=== PATIENT | female | born 1990 | race Caucasian/White ===

== ENCOUNTER → 2018-08-30 16:47 | Outpatient (CLI) | payer OTHER, SELFPAY ==
[2018-08-30 16:08] VITALS: BMI 24.3
[2018-08-30 18:42] LABS: Glucose Challenge Gest 1H 50g 96 mg/dL (70-140)
[2018-08-30 22:09] LABS: Chlamydia Trachomatis by PCR Negative (Negative); Neisserai gonorrhoeae by PCR Negative (Negative); Probe Check PASS; Sample Adequacy Control PASS; Specimen Processing Control PASS
--- OUTSIDE RECORDS SUMMARY | 2018-10-17 01:53 | XMS RPT_ITS ---
:1990 Author Organization OHIP Care Team Providers Name Role Phone Kyung Catalan Attending Unavailable Marcanthony, Kyung Referring Unavailable Adler, Juan Primary Care Unavailable Kyung Catalan Attending Unavailable Adler, Juan Attending Unavailable Adler, Juan Attending Unavailable Marcanthony, Kyung Attending Unavailable DOCTOR, OUT OF TOWN Referring Unavailable Adler, Juan Attending Unavailable [place], Jennifer Attending Unavailable Adler, Juan Referring Unavailable [place], Jennifer Attending Unavailable [place], Jennifer Referring Unavailable Adler, Juan Primary Care Unavailable PROBLEMS PROBLEMS DATE TYPE CONDITION / CODE ATTENDING STATUS SOURCE 09/30/2018 Unknown Z34.93 - Encounter Jennifer Partida Active [place] for supervision of [facility] normal , Hospital unspecified, third Repository trimester / Z34.93(ICD-10) 09/30/2018 Unknown Z23 - Encounter Jennifer Partida Active [place] for immunization / Community Z23(ICD-10) Hospital Repository 09/16/2018 Unknown Z3A.28 - 28 weeks Mckayanthdavonte, Active [place] gestation of [facility] / Hospital Z3A.28(ICD-10) Repository 09/16/2018 Unknown Z34.83 - Encounter Marcanthdavonte, Active [place] for supervision of [facility] other normal Hospital , third Repository trimester / Z34.83(ICD-10) 08/30/2018 Unknown Z34.90 - Encounter Marcanthony, Active [place] for supervision of [facility] normal , Hospital unspecified, Repository unspecified trimester / Z34.90(ICD-10) PROCEDURES PROCEDURES No Procedure Records FoundRESULTS RESULTS Observed: 09/30/2018 Status: F Source: [place] CULTURE, URINE 1:24 PM [facility] Urine Culture ORGANISM 1: Mixed Gram Positive Organisms [place] Count 1000-10,000 MIX CULTURE Mixed contaminants. Submit a new specimen if indicated. Performed By: #### M100.0650 #### [facility] [address] [place], [address] LOAN ADVISER OFFICE VISIT Observed: 09/30/2018 Status: F Source: RILEY REPORT 10:21 AM [facility] REPOSITORY [facility] 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 Is patient in pain?: No Allergies No Known Allergies Allergy (Verified 09/30/18 10:01) Medications pediatric multivitamin no.140-iron fumarate 18 mg iron chewable tablet mg PO tab 08/30/18 [History Confirmed 09/30/18] Last Menstral Period: 02/20/18 Zika: Zika virus screening: Negative : No PFSH PFSH Surgical History Gallbladder AND bile duct stone with obstruction (Acute) Family History Grandfather Cancer Grandmother Cancer Hypertension Father Hypertension Social History number of children: 1 current occupational status: unemployed Smoking Status: Never smoker alcohol intake: never substance use type: does not use seatbelt use: always do you feel safe at home: Yes additional social history: Daiana Zaman Pregancy History 4 Elective abortions Hx Para 1 Spontaneous abortions 2 Past Pregnancies Del. DateName GA/Weeks Outcome Route Bth WeighInfant GeLabor LgtAnesthesiDel LocatProvider FOB t n h a n HPI 32 WK OB: Details: MAYUR FERNANDES is a 28 year old who presents for routine OB visit. OB Visit DIANNA Calculator Estimated Delivery Date 11/20/18 Based on LMP (certain) 02/13/18 Current WG 32w 5d Number 1 Expected Delivery Route/Plan Specific Issue/Plans flu vaccine: given tdap vaccine: rhogam: LARC form signed: [] labor support person: [] pain management: [] cut cord/dad catch: [] : [] PP control planned: [] discussed possible routes of delivery and associated risks: [] special requests: [] Initial Weight: Not Recorded Date Weight BP Urine PrFHR FuHt Pres MoCTX DilationFetal StVisit NoProviderComments E ot v te GA G Effac lucose ed Visit Notes Visit Date: 09/30/18 No VB, LOF. No reg CTX. Doing well ROBERT Martinez on 09/30/18 Visit Date: 09/16/18 no vb lof good fm no regular ctx Kyung Catalan MD on 09/16/18 Diagnostics Diagnostics Labs Pap Smear Negative 05/12/18 Chlam trachomat DNA PCR Negative (Negative) 08/30/18 N.gonorrhoeae DNA (PCR) Negative (Negative) 08/30/18 Glucose 1 Hr 50 gm 96 mg/dL (70-140) 08/30/18 Details: HIV: Urine Culture: Sequential Screen: NIPT Screen: Immunizations Boostrix Tdap Performing Provider: ROBERT Martinez Administered by: Sophy Eaton on 09/30/18 10:12 Dose Route Admin Location Lot Number Expiration Date [facility] Head Of Stock 0.5 mL IM Left Deltoid [id number] 09/04/20 87716-117-85 [employer] VIS Given Date VIS Publication Date 09/30/18 11/14/14 Eligibility Eligibility Date Assessment AND Plan Problems 1. Encounter for supervision of other normal in third trimester Z34.83 DIANNA ? 11/20/18 boy PC Johnny - daiana (estranged) 2. 32 weeks gestation of Z3A.32 obtain records from [place] 3. Marital conflict involving estrangement Z63.5 Spouse/FOB not living in [place] Plan Orders placed: tdap, urine culture Reviewed of labor precautions, movement/kick counts ACOG trimester education reviewed and updated See problem list details for updated plan of care Gestational age appropriate handout given RTO: 2 weeks Orders Orders: Medications Discontinued: Boostrix Tdap (diphth,pertus(acell),tetanus) Discontinued 0.5 mL IM ONCE #1 0RF NS Z23 Reason: Office Medication has been Documented as given Coding Level of Care Code OB Routine Diagnoses Encounter for supervision of other normal in third trimester Z34.83 Normal : other normal 32 weeks gestation of Z3A.32 Weeks of gestation: 32 weeks Marital conflict involving estrangement Z63.5 09/30/18 1021 <Electronically signed by Jennifer JONES> Date Jennifer JONES Cosigner Signature: Date (if applicable) CC: LOAN ADVISER OFFICE VISIT Observed: 09/16/2018 Status: F Source: RONA REPORT 4:43 PM [facility] REPOSITORY [facility] [address] [place] [address]. 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 Is patient in pain?: No Allergies No Known Allergies Allergy (Verified 09/16/18 16:10) Medications pediatric multivitamin no.140-iron fumarate 18 mg iron chewable tablet mg PO tab 08/30/18 [History Confirmed 09/16/18] Last Menstral Period: 02/20/18 Zika: Zika virus screening: Negative : No PFSH PFSH Surgical History Gallbladder AND bile duct stone with obstruction (Acute) Family History Grandfather Cancer Grandmother Cancer Hypertension Father Hypertension Social History number of children: 1 current occupational status: unemployed Smoking Status: Never smoker alcohol intake: never substance use type: does not use seatbelt use: always do you feel safe at home: Yes additional social history: Daiana Zaman Pregancy History 4 Elective abortions Hx Para 1 Spontaneous abortions 2 Past Pregnancies Del. DateName GA/Weeks Outcome Route Bth WeighInfant GeLabor LgtAnesthesiDel LocatProvider FOB t n h a n HPI 30 WEEK OB: Details: MAYUR FERNANDES is a 28 year old who presents for routine OB visit. OB Visit DIANNA Calculator Estimated Delivery Date 11/20/18 Based on LMP (certain) 02/13/18 Current WG 30w 5d Number 1 Expected Delivery Route/Plan Specific Issue/Plans flu vaccine: given tdap vaccine: rhogam: LARC form signed: [] labor support person: [] pain management: [] cut cord/dad catch: [] : [] PP control planned: [] discussed possible routes of delivery and associated risks: [] special requests: [] Initial Weight: Not Recorded Date Weight BP Urine PrFHR FuHt Pres MoCTX DilationFetal StVisit NoProviderComments E ot v te GA G Effac lucose ed Visit Notes Visit Date: 09/16/18 no vb lof good fm no regular ctx Kyung Catalan MD on 09/16/18 Diagnostics Diagnostics Labs Chlam trachomat DNA PCR Negative (Negative) 08/30/18 N.gonorrhoeae DNA (PCR) Negative (Negative) 08/30/18 Glucose 1 Hr 50 gm 96 mg/dL (70-140) 08/30/18 Details: HIV: Urine Culture: Sequential Screen: NIPT Screen: Results [id number] Office Urine Glucose Negative Last Edit by Daniela Rico on 09/16/18 16:18 Office Urine Protein Negative Last Edit by Daniela Rico on 09/16/18 16:18 Assessment AND Plan Problems 1. 28 weeks gestation of Z3A.28 obtain records from [place] 2. Encounter for supervision of other normal in third trimester Z34.83 DIANNA ? 11/20/18 boy PC Jhonny - daiana (estranged) Plan movement and labor precautions reviewed. ACOG trimester education reviewed and updated. see problem list details for updated plan management information and see below for orders placed at this visit. GA appropriate handout given. Orders Orders: Coding Level of Care Code OB Routine Diagnoses 28 weeks gestation of Z3A.28 Weeks of gestation: 28 weeks Encounter for supervision of other normal in third trimester Z34.83 Normal : other normal 09/16/18 1643 <Electronically signed by Kyung Catalan MD> Date Kyung Catalan MD Cosigner Signature: Date (if applicable) CC: CT/NG WCH BY PCR Collected: 08/30/2018 Status: F Source: RONA 6:58 PM [facility] REPOSITORY TYPE CODE TESTS RESULT OUT OF RANGE REFERENCE UNITS LAB L8200.2100 Negative Normal Chlam Negative Trac PCR LAB L8200.2200 Negative Normal NG by Negative PCR Performed By: #### L8200.2000 #### [facility] [address] [place] [place], [address] GLUCOSE CHALLENGE GEST Collected: 08/30/2018 Status: F Source: RONA 1H 50G 5:00 PM [facility] REPOSITORY TYPE CODE TESTS RESULT OUT OF RANGE REFERENCE UNITS LAB L501.0250 70-140 mg/dL Normal GLU GEST 96 50g 1H Performed By: #### L501.0250 #### [facility] [address] [place], [address] LOAN ADVISER OFFICE VISIT Observed: 08/30/2018 Status: F Source: RONA REPORT 4:50 PM [facility] REPOSITORY [facility] 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 Is patient in pain?: No Allergies No Known Allergies Allergy (Unverified 08/30/18 16:09) Medications pediatric multivitamin no.140-iron fumarate 18 mg iron chewable tablet mg PO tab 08/30/18 [History Confirmed 08/30/18] Last Menstral Period: 02/20/18 Zika: Zika virus screening: Negative : No PFSH PFSH Surgical History Gallbladder AND bile duct stone with obstruction (Acute) Family History Grandfather Cancer Grandmother Cancer Hypertension Father Hypertension Social History number of children: 1 current occupational status: unemployed Smoking Status: Never smoker alcohol intake: never substance use type: does not use seatbelt use: always do you feel safe at home: Yes additional social history: Daiana Zaman Pregancy History 4 Elective abortions Hx Para 1 Spontaneous abortions 2 Past Pregnancies Del. DateName GA/Weeks Outcome Route Bth WeighInfant GeLabor LgtAnesthesiDel LocatProvider FOB t n h a n HPI OB Transfer-27 weeks-STD check: Details: MAYUR FERNANDES is a 28 year old who presents for New OB visit. OB Visit Menstrual History Last Menstral Period: 02/20/18 Assessment AND Plan Problems 1. Encounter for supervision of other normal in third trimester Z34.83 DIANNA ? 3/2/19 boy SHRAVAN Turner - daiana (estranged) 2. 28 weeks gestation of Z3A.28 obtain records from [facility] trimester education reviewed and updated. see problem list details for updated plan management information and see below for orders placed at this visit. GA appropriate handout given. Orders Orders: Results [id number] Office Urine Glucose Negative Last Edit by Daniela Rico on 08/30/18 16:08 Office Urine Protein Negative Last Edit by Daniela Rico on 08/30/18 16:08 Coding Level of Care Code OB Routine Diagnoses Encounter for supervision of other normal in third trimester Z34.83 Normal : other normal 28 weeks gestation of Z3A.28 Weeks of gestation: 28 weeks 08/30/18 1650 <Electronically signed by Kyung Catalan MD> Date Kyung Catalan MD Cosigner Signature: Date (if applicable) CC: ALLERGIES ALLERGIES DATE TYPE / CODE NAME / CODE REACTION SEVERITY SOURCE 09/30/2018 Drug No Known Unknown [place] [facility] Allergy/4160 Allergies/F00 Hospital [address]306(SNOMED 4190244(RXNOR Repository CT) M) ENCOUNTERS ENCOUNTERS ADMIT/DISCHARGE ACCOUNT ADMITTING ENCOUNTER LOCATION SOURCE NUMBER CLASS 09/30/2018 [id number] Ambulatory [place] [facility] ing:LABSPEC Repository 09/30/2018/ [id number] Ambulatory [facility] 09/16/2018/ [id number] Ambulatory B[facility] Rep[facility] 08/30/2018 [id number] Ambulatory [place] [facility] ing:LAB Repository 08/30/2018/ [id number] Ambulatory BMS[facility]:B [facility] Rep[facility] 06/19/2018 [id number] Amb[facility] Rep[facility] 06/10/2018 [id number] Ambulatory [facility] Rep[facility] 05/12/2018 [id number] Ambulatory [facility]:B [place] [facility] Repository PAYERS PAYERS ENCOUNTER GUARANTOR PAYER SUBSCRIBER SOURCE 09/30/2018 MAYUR D Primary ROXANNA FERNANDES1192 TR Insurance:TRICAREPoli BURNSDOB: [address] cy Number: [id number] Hospital [address]Mfj: [phone] [id number] Repository [phone] () Date:[id number] [address]UI: . 09/30/2018 Secondary MAYUR D [place] Insurance:MEDICAIDPol [facility] icy Number: [id number] Hospital [id number] Repository Date:2018-09-30 09/30/2018 Tertiary NOT GIVENUNK [place] Insurance:SELF PAY [facility] Number: Effective Repository Date:2018-09-30 09/30/2018 MAYUR D Primary ROXANNAADRIANO [id number] TR Insurance:TRICAREPoli BURNSDOB: [address] cy Number: [id number] Hospital [address]Vll: [phone]) [id number] Repository [phone] () Date:[id number] [address]RI: . 09/30/2018 Secondary MAYUR D [place] Insurance:MEDICAIDPol [facility] icy Number: [id number] Hospital [id number] Repository Date:2018-09-16 09/30/2018 Tertiary NOT GIVENUNK [place] Insurance:SELF PAY [facility] Number: Effective Repository Date:2018-09-30 09/16/2018 MAYUR D Primary ROXANNAADRIANO Rea [id number] TR Insurance:TRICAREPoli BURNSDOB: [address] cy Number: [id number] Hospital [address]Tse: [phone] [id number] Repository [phone] () Date:7427-16-96NLHXSA [facility] [address] [address]PO [address] [place] [address]QO: . 09/16/2018 Secondary NOT GIVENUNK [place] Insurance:SELF PAY [facility]: Effective Repository Date:2018-09-16 08/30/2018 MAYUR Haley Primary ROXANNA FERNANDES1192 TR Insurance:TRICAREPoli BURNSDOB: Community [address] [place] [address] cy Number: [id number] Hospital [address]Sez: [phone] [id number] Repository [phone] () Date:0317-12-46AUISPFJOHN C. [facility] SERVICESPO [address] [place] [address]DN: . 08/30/2018 Secondary NOT GIVENUNK [place] Insurance:SELF PAY [facility] Number: Effective Repository Date:2018-08-30 08/30/2018 MAYUR Haley Primary ROXANNA FERNANDES1192 TR Insurance:TRICAREPoli BURNSDOB: Community [address] [place] [address] cy Number: [id number] Hospital [address]Ggq: [phone]) [id number] Repository [phone] () Date:2018-08-24 08/30/2018 Secondary NOT GIVENUNK [place] Insurance:SELF PAY [facility] Number: Effective Repository Date:2018-08-24 06/19/2018 MAYUR Haley Primary ROXANNA Rea [id number] TR Insurance:TRICAREPoli BURNSDOB: [address] cy Number: [id number] Hospital [address]Bde: [phone] [id number] Repository [phone] (HP) Date:3839-02-16YJIIIF [facility] FEDERAL [address]PO [address] [place] [address]AO: . 06/19/2018 Secondary NOT GIVENUNK [place] Insurance:SELF PAY [facility] Number: Effective Repository Date:2018-06-19 06/10/2018 MAYUR Haley Primary ROXANNA Rea [id number] TR Insurance:TRICAREPoli BURNSDOB: Community [address] [place] [address] cy Number: [id number] Hospital [address]Yvk: ([phone]) [id number] Repository [phone] (HP) Date:6794-25-67JHTNAD [facility] SERVICESPO [address], [place] [address]NA: . 06/10/2018 Secondary NOT GIVENUNK [place] Insurance:SELF PAY [facility] Number: Effective Repository Date:2018-06-10 05/12/2018 MAYUR Haley Primary ROXANNA Rea [id number] TR Insurance:SHAKEELARETomy [facility] [address] Number: [id number] Hospital [address]Uob: [phone]) [id number] Repository [phone] () Date:9755-12-22PYMDEL [facility] SERVICESPO [address], [place] [address]JY: . 05/12/2018 Secondary NOT GIVENUNK [place] Insurance:SELF PAY [facility] Number: Effective Repository Date:2018-05-12
== END ==
PROVIDERS: Family Provider Family Medicine; PCP Family Medicine; Referring Provider Obstetrics & Gynecology; Visit Provider Obstetrics & Gynecology
DX: A64 Unspecified sexually transmitted disease (principal)
CPT/HCPCS: 36415; 82950; 87491; 87591

== ENCOUNTER → 2018-09-30 12:27 | Outpatient (CLI) | payer OTHER, MEDICAID, SELFPAY ==
[2018-09-30 10:20] VITALS: BMI 24.3
== END ==
PROVIDERS: Family Provider Family Medicine; PCP Family Medicine; Referring Provider Nurse Practitioner Women's Health; Visit Provider Nurse Practitioner Women's Health
DX: Z34.93 Encounter for supervision of normal pregnancy, unspecified, third trimester (principal)
CPT/HCPCS: 87086; 87088

== ENCOUNTER → 2018-10-20 16:45 | Outpatient (CLI) | payer OTHER, MEDICAID, SELFPAY ==
[2018-10-15 13:45] VITALS: BMI 24.3
--- NOTE | 2018-10-20 16:46 | US_ITS ---
STUDY: SECOND AND THIRD TRIMESTER OBSTETRICAL ULTRASOUND - LIMITED REASON FOR EXAM: Female, 28 years old. Small for dates LMP: 02/13/2018 PRIOR ULTRASOUND: None. TECHNIQUE: Both transabdominal and transvaginal probes were used TECHNICAL QUALITY: Adequate. FINDINGS: There is a single intrauterine fetus. The fetus is in a cephalic presentation. There is demonstrated cardiac activity with a heart rate of 128 bpm. There is a normal amniotic fluid volume. The largest amniotic fluid pocket measures 7.9 x 3.9 cm. The amniotic fluid index (PIERRE) is 11.2 cm. The placenta is posterior and not low-lying There are Grade 0 placental changes. The cervix measures 3.2 cm in length. The head is low in the pelvis BIOMETRY: BPD: 8.5 cm: 34 weeks, 1 days HC: 32.5 cm: 36 weeks, 6 days AC: 30.9 cm: 34 weeks, 6 days FL: 6.6 cm: 34 weeks, 0 days CI: 0.79. FL/AC: 0.21., FL/BPD: 0.78, HC/AC: 1.05 age by prior US: 35 weeks, 4 days. DIANNA by prior US: 11/20/2018 age by current US: 35 weeks, 0 days. DIANNA by current US: 11/24/2018. Estimated weight: 2498 grams, +/- 365 grams, 26 percentile. US/OB Limited With Biometrics IMPRESSION: The study shows a single live fetus in a cephalic presentation and longitudinal lie with composite measurements averaging out to be equivalent to 5 weeks 0 days +/- 5 days with an expected date of delivery of 11/24/2018. The head is low in the pelvis. No previous studies are available for comparison Electronically Signed: Mook Love MD at 4:46 EST Tel , Service support ,
== END ==
PROVIDERS: Family Provider Family Medicine; PCP Family Medicine; Referring Provider Obstetrics & Gynecology; Visit Provider Obstetrics & Gynecology
DX: O26.849 Uterine size-date discrepancy, unspecified trimester (principal); Z3A.00 Weeks of gestation of pregnancy not specified
CPT/HCPCS: 76816

== ENCOUNTER 2018-11-02 06:38 | Inpatient (IN) | payer OTHER, MEDICAID, SELFPAY ==
[2018-09-30 10:20] VITALS: BMI 24.3
[2018-10-29 14:10] VITALS: BMI 24.3
[2018-11-02] MEDS: Lactated Ringers 1,000 ML 50 ML IV ×2 (07:45→08:42)
[2018-11-02 07:47] VITALS: BMI 25.8
[2018-11-02 08:16] LABS: Hematocrit 42.1 % (37-47); Hemoglobin 13.9 g/dl (12.0-15.0); Mean Corpuscular Hgb 30.8 pg (27.0-32.0); Mean Corpuscular Volume 93.1 fL (81-99); Mean Platelet Vol. 12.2 fl (6.2-12.0); Platelet Count 150 K/mm3 (150-450); RBC Distribution Width CV 13.6 % (11.6-14.6); RBC Distribution Width SD 45.7 fl (35.1-43.9); Red Blood Count 4.52 M/mm3 (4.2-5.4); White Blood Count 8.4 K/mm3 (4.4-11.0)
[2018-11-02 08:19] LABS: Scan Indicated on CBC? Y/N NO
[2018-11-02] MEDS: fentaNYL-bupivacaine (epidural) 100 ML BAG EPIDURAL (08:30)
--- NOTE | 2018-11-02 08:31 | HP.PCM_ITS ---
- Problem List (1) Marital conflict involving estrangement Status: Acute Comment: Spouse/FOB not living in [place] (2) Status: Acute Qualifiers: Weeks of gestation: 36 weeks Qualified Code(s): Z3A.36 - 36 weeks gestation of Comment: obtain records from [place] (3) Supervision of normal in third trimester Status: Acute Qualifiers: Normal : other normal Qualified Code(s): Z34.83 - Encounter for supervision of other normal , third trimester Comment: DIANNA ? 11/20/18 boy SHRAVAN Turner - daiana (estranged) History Date of Admission: 11/02/18 Gestational age: 37 History of this : This is a 28 year-old, , at 37 weeks gestational age presents IAL 4-5 cm and grossly ruptures clear fluid. she has had an uncomplicated . she originally was in [place] and she became estranged from her and so she is here now for delivery living with her parents, Surgical History: Surgical History (Last Reviewed 10/29/18 @ 13:50 by Lilliam Forman) Gallbladder & bile duct stone with obstruction K80.71 Allergies No Known Allergies Allergy (Verified 11/02/18 07:47) Home Medications: Home Medications pediatric multivitamin no.140-iron fumarate 18 mg iron chewable tablet 18 mg PO DAILY tab 08/30/18 Smoking Status: Never smoker Alcohol: None Number of Fetus(es): 1 Heart Tracin moderate variability reactive no decelerations category I tracing [place]: regular History Past Pregnancies: Past Pregnancies Delivery Date Name GA/Weeks Outcome Route Weight Gender Labor Length Anesthesia Delivery Location Provider FOB 2014 eber 40 uncomplicated Labs: Mom's Labs & Results 11/02/18 11/02/18 07:50 07:50 WBC 8.4 RBC 4.52 Hgb 13.9 Hct 42.1 MCV 93.1 MCH 30.8 MCHC 33.0 RDW 13.6 RDW Differential 45.7 H Plt Count 150 MPV 12.2 H Blood Type A POSITIVE Antibody Screen NEGATIVE Course Did the patient receive Yes care? Labs Blood Type: A RH: POSITIVE RPR/VDRL/Syphilis Nonreactive Rubella status Immune HbSAg Negative Date Done: 06/11/18 Chlamydia Negative Gonorrhea Negative HIV/AIDS Non-Reactive Group B Strep: Negative Current Obstetrical History Gestational Diabetes No Incompetent Cervix No Infertility No IUGR No Macrosomia No Hypertension/Pre-eclampsia No Placenta Previa/Abruption No PTL/PROM No Uterine anomaly No Oligohydramnios No Polyhydramnios No Multiple gestation No Past Medical History Asthma No Diabetes No Hypertension No Heart disease No Mitral valve prolapse No Neurologic/Seizure disorder/ No Migraines Kidney disease No Liver disease No Varicosities No Clotting disorders/Hx of DVT No Thyroid Dysfunction No Other medical diseases No Psychiatric disorders No Major trauma No Abnormal PAP smear No Sleep apnea No Mammogram in the last 2 years Yes Social History Marital Status: Alleged father Dick Weaver Hx Smoking Yes Smoking Status Former smoker Expected Delivery Method: Spontaneous Vaginal Review of Systems Constitutional: Denies: Fever, Malaise Eyes: Denies: Blurred vision, Vision Change HEENT: Denies: Head Aches, Visual Changes Cardiovascular: Denies: Chest Pain, Palpitations Respiratory: Denies: Cough, Shortness of Breath, Wheezing Gastrointestinal: Denies: Abdominal Pain, Diarrhea, Nausea, Vomiting Genitourinary: Denies: Dysuria, Hematuria Musculoskeletal: Denies: Joint Pain, Muscle pain Skin: Denies: Lesions, Rash Neurological: Denies: Blurred vision, Focal weakness, Headaches Psychiatric: Denies: Anxiety, Depression Endocrine: Denies: Heat/ Cold Intolerance Hematologic/ Lymphatic: Denies: Easy Bruising, Easy Bleeding Physical Exam General: Alert, Cooperative, No apparent distress HEENT: Atraumatic, Normocephalic. Negative for: Thyromegaly, Lymphadenopathy Cardiovascular: Regular rate Lungs: Normal air movement Abdomen: Soft, Non Tender, Gravid Neurological: Deep Tendon Reflexes 2+/4 and Symmetrical, Neuro grossly intact. Negative for: Clonus FARM MACHINERY MECHANIC: Normal external genitalia. Negative for: Vulvar lesions Estimated gestational size: Appropriate for gestational size Presentation: Cephalic Cervix Dilation (cm): 4.5 Assessment/Plan All Active Problems (Last Reviewed 10/29/18 @ 13:50 by Lilliam Forman) Marital conflict involving estrangement (Acute) (Acute) Supervision of normal in third trimester (Acute) This is a 28 year-old, at 37 weeks gestational age presents IAL SROM clear fluid admit IAL epidural
[2018-11-02] MEDS: Lactated Ringers 1,000 ML 15 ML IV (09:06)
[2018-11-02] MEDS: Oxytocin 30 units/NS 500 ml 30 UNITS/500 ML IV.SOLN 334 UNITS IV (09:07)
--- NOTE | 2018-11-02 11:34 | PCM.OB.VAG ---
- Problem List (1) Marital conflict involving estrangement Status: Acute Comment: Spouse/FOB not living in [place] (2) Status: Acute Qualifiers: Weeks of gestation: 36 weeks Qualified Code(s): Z3A.36 - 36 weeks gestation of Comment: obtain records from [place] (3) Supervision of normal in third trimester Status: Acute Qualifiers: Normal : other normal Qualified Code(s): Z34.83 - Encounter for supervision of other normal , third trimester Comment: DIANNA ? 11/20/18 boy SHRAVAN Turner - daiana (estranged) Vaginal Delivery Maternal Presentation: Active Labor 37 week active labor Amniotic Membrane Rupture Type: Spontaneous at home Amniotic Fluid Description: Clear Date of Procedure: 11/02/18 Pre-Operative Diagnosis: ial Post-Operative Diagnosis: same Surgery/ Procedure Performed: Spontaneous Vaginal Delivery Type of Anesthesia: Epidural Description of Procedure: Patient began pushing and delivered the head in the SARAH presentation. The head was delivered atraumatically. The anterior and posterior shoulders delivered without complication followed by the rest of the infant and the was placed on the maternal abdomen. Delayed cord clamping was employed for approximately 60 seconds. Cord was clamped and cut and gentle traction was applied to the cord and the placenta delivered spontaneously immediately following it was noted to be intact with three-vessel cord. The perineum and vagina were inspected and noted to have no laceration. EBL was 100 cc. Patient and tolerated delivery well.
[2018-11-02] MEDS: Naproxen 250 MG Tablet PO ×2 (13:22→21:06)
[2018-11-02 16:10] VITALS: BP 113/68; PULSE 84; RESP 14; TEMP 37.1
[2018-11-02 20:10] VITALS: BP 123/76; PULSE 80; RESP 18; TEMP 36.8
[2018-11-02] MEDS: Acetaminophen 500 MG Tablet 1000 MG PO (23:52)
[2018-11-02 23:53] VITALS: BP 122/78; PULSE 82; RESP 16; TEMP 37.1
[2018-11-03] MEDS: Naproxen 250 MG Tablet PO ×2 (05:15→20:26)
--- NOTE | 2018-11-03 08:41 | PCM.PN.OB ---
Subjective: Doing well. No CP, SOB - Physical Exam General: Alert, Oriented x3 Abdomen: Soft, Non Tender, - - FF below U Vital Signs Temp Pulse Resp BP 98.7 F 82 16 122/78 H 11/02/18 23:53 11/02/18 23:53 11/02/18 23:53 11/02/18 23:53 Oxygen Delivery Method Room Air Weight: 155 lb 3.287 oz Body Mass Index (BMI) 25.8 Intake and Output for Last 24 Hours 11/01/18 11/02/18 11/03/18 23:59 23:59 23:59 Output Total 800 / 800 Balance -800 / -800 Laboratory Tests Past 24 Hrs 11/02/18 07:50 Blood Type A POSITIVE Antibody Screen NEGATIVE Medical Necessity - Tobacco Use Smoking Status: Never smoker Assessment/Plan All Active Problems (Last Reviewed 10/29/18 @ 13:50 by Lilliam Forman) Marital conflict involving estrangement (Acute) (Acute) Supervision of normal in third trimester (Acute) PPD#1: Routine care. Breast feeding. No concerns
[2018-11-03 09:05] VITALS: BP 115/76; PULSE 88; RESP 16; TEMP 36.6
[2018-11-03 14:00] VITALS: BP 121/75; PULSE 85; RESP 16; TEMP 37.1
[2018-11-03 20:01] VITALS: BP 113/70; PULSE 85; RESP 17; TEMP 37.2; O2SAT 96
[2018-11-04 02:10] VITALS: BP 107/64; PULSE 73; RESP 16; TEMP 36.9; O2SAT 95
[2018-11-04 07:40] VITALS: BP 105/64; PULSE 73; RESP 16; TEMP 36.9; O2SAT 97
--- NOTE | 2018-11-04 07:57 | PCM.PN.OB ---
Subjective: Doing well. No CP, SOB. Plans home today - Physical Exam General: Alert, Oriented x3 Abdomen: Soft, Non Tender, - - FF below U Vital Signs Temp Pulse Resp BP Pulse Ox 98.4 F 73 16 107/64 95 11/04/18 02:10 11/04/18 02:10 11/04/18 02:10 11/04/18 02:10 11/04/18 02:10 Oxygen Delivery Method Room Air Weight: 155 lb 3.287 oz Body Mass Index (BMI) 25.8 Intake and Output for Last 24 Hours 11/02/18 11/03/18 11/04/18 23:59 23:59 23:59 Output Total 800 / 800 Balance -800 / -800 Medical Necessity - Tobacco Use Smoking Status: Never smoker Assessment/Plan All Active Problems (Last Reviewed 10/29/18 @ 13:50 by Lilliam Forman) Marital conflict involving estrangement (Acute) (Acute) Supervision of normal in third trimester (Acute) PPD #2: Routine care. . Plans progesterone only OCP for contraception. Instructed to start 4 week pp.
--- NOTE | 2018-11-04 07:59 | PCM.DCVAG ---
Additional Instructions: If you experience any of the following, contact your healthcare provider. Bleeding that soaks a pad every hour for 2 hours Fever 100.4 or higher Unrelieved incision or abdominal pain Swelling, redness, discharge or bleeding from your incision or episiotomy site Your incision begins to separate Problems urinating (including inability to urinate or burning while urinating). Visual changes Severe headache Flu-like symptoms Pain or redness in one of both of your breasts Pain, warmth, tenderness or swelling in your legs, especially the calf area Frequent nausea and vomiting Symptoms of depression or anxiety If you experience any of the following, call 911 or go to the nearest Emergency Room. Chest pain Problems breathing Seizure activity Partial or complete paralysis of a body part, slurred speech, weakness or drooping of the face, or a sudden inability to walk or hold your balance Allergies/Adverse Reactions: Allergies No Known Allergies Allergy (Verified 11/02/18 07:47) Medications to take at Discharge pediatric multivitamin no.140-iron fumarate 18 mg iron chewable tablet 18 mg PO DAILY tab 08/30/18 Primary Care Physician: Juan Adler MD [Primary Care Provider] - Test Results: Test results from this visit will be discussed in further detail at your follow-up appointment, if applicable.
--- NOTE | 2018-11-04 08:00 | DCINST_ITS ---
Additional Instructions: If you experience any of the following, contact your healthcare provider. * Bleeding that soaks a pad every hour for 2 hours * Fever 100.4 or higher * Unrelieved incision or abdominal pain * Swelling, redness, discharge or bleeding from your incision or episiotomy site * Your incision begins to separate * Problems urinating (including inability to urinate or burning while urinating). * Visual changes * Severe headache * Flu-like symptoms * Pain or redness in one of both of your breasts * Pain, warmth, tenderness or swelling in your legs, especially the calf area * Frequent nausea and vomiting * Symptoms of depression or anxiety If you experience any of the following, call 911 or go to the nearest Emergency Room. * Chest pain * Problems breathing * Seizure activity * Partial or complete paralysis of a body part, slurred speech, weakness or drooping of the face, or a sudden inability to walk or hold your balance Allergies/Adverse Reactions: Allergies No Known Allergies Allergy (Verified 11/02/18 07:47) Medications to take at Discharge pediatric multivitamin no.140-iron fumarate 18 mg iron chewable tablet 18 mg PO DAILY tab 08/30/18 Primary Care Physician: Juan Adler MD [Primary Care Provider] - Test Results: Test results from this visit will be discussed in further detail at your follow- up appointment, if applicable.
[2018-11-04] MEDS: Naproxen 250 MG Tablet PO (12:16)
[2018-11-04 14:20] VITALS: BP 113/71; PULSE 93; RESP 18; TEMP 37.4; O2SAT 96
== END 2018-11-04 14:35 | disposition home or self-care (01) | DRG 807 ==
PROVIDERS: Admitting Provider Obstetrics & Gynecology; Family Provider Family Medicine; PCP Family Medicine; Referring Provider Obstetrics & Gynecology; Visit Provider Obstetrics & Gynecology
DX: O42.02 Full-term premature rupture of membranes, onset of labor within 24 hours of rupture (principal); Z37.0 Single live birth; Z3A.37 37 weeks gestation of pregnancy; Z63.5 Disruption of family by separation and divorce
CPT/HCPCS: 59025; 59050; 85027; 86850; 86900; 99218; J7120; G0378

== ENCOUNTER → 2020-05-07 14:13 | Outpatient (CLI) | payer BC, SELFPAY ==
[2020-05-07 13:26] VITALS: BMI 25.8
[2020-05-07 14:33] LABS: Absolute Lymphocyte Count 1.58 X10^3/uL (0.83-4.51); Absolute Neutrophil Count 4.8 X10^3/uL (2.0-7.7); Basophil# 0.04 X10^3/uL; Basophil% 0.6 % (0-1); Eosinophil# 0.11 X10^3/uL; Eosinophils% 1.6 % (0-5); Hematocrit 44.9 % (37-47); Hemoglobin 14.2 g/dL (12.0-15.0); Lymphocyte # 1.58 X10^3/ul (4.0); Lymphocyte % 22.4 % (19-41); Mean Corp Hgb Conc 31.6 g/dL (32-36); Mean Corpuscular Hgb 29.3 pg (27.0-32.0); Mean Corpuscular Volume 92.8 fL (81-99); Mean Platelet Vol. 9.5 fl (6.2-12.0); Monocyte# 0.53 X10^3/uL; Monocyte% 7.5 % (0-10); NRBC Flagged by Analyzer 0 % (0-5); Neutrophil # 4.79 X10^3/uL (2.7-7.7); Neutrophil % 67.9 % (47-70); Platelet Count 271 K/mm3 (150-450); RBC Distribution Width CV 11.7 % (11.6-14.6); RBC Distribution Width SD 39.8 fl (35.1-43.9); Red Blood Count 4.84 M/mm3 (4.2-5.4); White Blood Count 7.1 K/mm3 (4.4-11.0)
[2020-05-07 15:10] LABS: Cholesterol 190 mg/dL (200); Glucose 83 mg/dL (74-106); High Density Lipoprotein 72 mg/dL; T4 Free Direct 1.02 ng/dL (0.76-1.46); Thyroid Stim Hormone (TSH) 1.97 uIU/mL (0.358-3.74); Triglycerides 94 mg/dL; Very Low Density Lipoprotein 19 mg/dL (5-40)
[2020-05-11 13:18] LABS: HPV APTIMA, High Risk Negative (Negative)
== END ==
PROVIDERS: PCP Family Medicine; Referring Provider Obstetrics & Gynecology; Visit Provider Obstetrics & Gynecology
DX: N93.9 Abnormal uterine and vaginal bleeding, unspecified (principal); Z12.4 Encounter for screening for malignant neoplasm of cervix
CPT/HCPCS: 36415; 80061; 82947; 84439; 84443; 85025; 87624; 88175; G0145

== ENCOUNTER → 2021-05-16 12:09 | Outpatient (CLI) | payer OTHER, SELFPAY ==
[2021-05-16 13:32] LABS: HIV - WCH Non-Reactive (Nonreactive)
[2021-05-17 20:08] LABS: HCV Quant. RNA PCR HCV Not Detected IU/mL (.)
[2021-05-20 03:07] LABS: Chlamydia By Nucleic Acid AMP Negative (Negative)
[2021-05-20 13:05] LABS: Gonococcus By Nucleic Acid AMP Negative (Negative)
[2021-05-20 13:13] LABS: HSV 2 IgG 2.25 index (0.00-0.90)
== END ==
PROVIDERS: PCP Family Medicine; Referring Provider Obstetrics & Gynecology; Visit Provider Obstetrics & Gynecology
DX: Z20.2 Contact with and (suspected) exposure to infections with a predominantly sexual mode of transmission (principal)
CPT/HCPCS: 36415; 86695; 86696; 86703; 87491; 87522; 87591

== ENCOUNTER → 2021-05-31 12:22 | Outpatient (CLI) | payer OTHER, SELFPAY | PROVIDERS: PCP Family Medicine; Visit Provider Obstetrics & Gynecology | DX: B00.9 Herpesviral infection, unspecified (principal) | CPT/HCPCS: 36415 ==

== ENCOUNTER → 2024-07-22 | Outpatient (CLI) | payer OTHER, SELFPAY ==
[2024-07-25 20:08] LABS: Chlamydia By Nucleic Acid AMP Negative (Negative); Gonococcus By Nucleic Acid AMP Negative (Negative)
== END | disposition home or self-care (01) ==
LOC: LABSPEC 11:52
PROVIDERS: PCP Family Medicine; Referring Provider Obstetrics & Gynecology; Visit Provider Obstetrics & Gynecology
DX: Z34.90 Encounter for supervision of normal pregnancy, unspecified, unspecified trimester (principal)
CPT/HCPCS: 87086; 87491; 87591

== ENCOUNTER → 2024-08-05 | Outpatient (CLI) | payer OTHER, SELFPAY ==
[2024-08-05 12:31] LABS: Absolute Lymphocyte Count 1.35 X10^3/uL (0.83-4.51); Basophil# 0.05 X10^3/uL; Basophil% 0.6 % (0-1); Eosinophil# 0.07 X10^3/uL; Eosinophils% 0.9 % (0-5); Hematocrit 43.4 % (37-47); Hemoglobin 14.1 g/dL (12.0-15.0); Lymphocyte # 1.35 X10^3/ul (0.83-4.51); Lymphocyte % 16.6 % (19-41); Mean Corp Hgb Conc 32.5 g/dL (32-36); Mean Corpuscular Hgb 29.8 pg (27.0-32.0); Mean Corpuscular Volume 91.8 fL (81-99); Mean Platelet Vol. 9.7 fl (6.2-12.0); Monocyte# 0.65 X10^3/uL; NRBC Flagged by Analyzer 0 % (0-5); Neutrophil # 5.98 X10^3/uL (2.7-7.7); Neutrophil % 73.7 % (47-70); Platelet Count 283 K/mm3 (150-450); RBC Distribution Width CV 11.7 % (11.6-14.6); RBC Distribution Width SD 39.6 fl (35.1-43.9); Red Blood Count 4.73 M/mm3 (4.2-5.4); White Blood Count 8.1 K/mm3 (4.4-11.0)
[2024-08-05 13:06] LABS: HIV - WCH Non-Reactive (Nonreactive); Hepatitis B Surface Antigen Non-Reactive (Nonreactive); Hepatitis C Antibody Non-Reactive (Nonreactive); Rubella IgG Reactive (Nonreactive); Syphilis Antibodies Non-reactive
== END | disposition home or self-care (01) ==
LOC: BWCLAB 10:31
PROVIDERS: PCP Family Medicine; Referring Provider Obstetrics & Gynecology; Visit Provider Obstetrics & Gynecology
DX: O09.90 Supervision of high risk pregnancy, unspecified, unspecified trimester (principal); Z3A.00 Weeks of gestation of pregnancy not specified
CPT/HCPCS: 36415; 85025; 86703; 86762; 86780; 86803; 86850; 86900; 86901; 87340

== ENCOUNTER → 2024-12-14 | Outpatient (CLI) | payer OTHER, SELFPAY ==
[2024-12-14 12:22] LABS: Absolute Lymphocyte Count 0.69 X10^3/uL (0.83-4.51); Absolute Neutrophil Count 6.4 X10^3/uL (2.0-7.7); Basophil# 0.03 X10^3/uL; Basophil% 0.4 % (0-1); Eosinophil# 0.08 X10^3/uL; Hematocrit 37.7 % (37-47); Hemoglobin 12.4 g/dL (12.0-15.0); Lymphocyte # 0.69 X10^3/ul (0.83-4.51); Lymphocyte % 8.9 % (19-41); Mean Corp Hgb Conc 32.9 g/dL (32-36); Mean Corpuscular Hgb 30.9 pg (27.0-32.0); Mean Platelet Vol. 10.1 fl (6.2-12.0); Monocyte# 0.53 X10^3/uL; Monocyte% 6.8 % (0-10); NRBC Flagged by Analyzer 0 % (0-5); Neutrophil # 6.39 X10^3/uL (2.7-7.7); Neutrophil % 82.1 % (47-70); Platelet Count 235 K/mm3 (150-450); RBC Distribution Width CV 12.6 % (11.6-14.6); RBC Distribution Width SD 43.2 fl (35.1-43.9); Red Blood Count 4.01 M/mm3 (4.2-5.4); White Blood Count 7.8 K/mm3 (4.4-11.0)
[2024-12-14 13:14] LABS: Syphilis Antibodies Nonreactive (Nonreactive)
[2024-12-14 13:34] LABS: HIV Nonreactive (Nonreactive)
[2024-12-14 13:35] LABS: Glucose Challenge Gest 1H 50g 87 mg/dL (70-140)
== END | disposition home or self-care (01) ==
PROVIDERS: Obstetrics & Gynecology; PCP Family Medicine; Referring Provider Nurse Practitioner Women's Health; Visit Provider Nurse Practitioner Women's Health
DX: O09.90 Supervision of high risk pregnancy, unspecified, unspecified trimester (principal); Z3A.00 Weeks of gestation of pregnancy not specified; Z13.1 Encounter for screening for diabetes mellitus
CPT/HCPCS: 36415; 82950; 85025; 86703; 86780

== ENCOUNTER → 2025-01-30 | Outpatient (CLI) | payer OTHER, SELFPAY ==
--- NOTE | 2025-01-30 08:50 | US_ITS ---
PROCEDURE: OB LIMITED WITH BIOMETRICS 01/30/2025 REASON FOR EXAM: GROWTH, AMA TECHNIQUE: High resolution obstetric ultrasound performed using a 2D transducer. Standard views obtained, including biometry, anatomy survey, and Doppler studies. COMPARISON: None FINDINGS Number: 1 Position: Vertex Placental Position: Posterior and not low-lying. Placental Abnormalities: None DIMENSIONS: Biparietal Diameter: 8.77 cm: 35 weeks and 3 days: 45th percentile/ Head Circumference: 32.66 cm: 37 weeks and 0 days: 48 percentile/ Abdominal Circumference: 34.89 cm: 38 weeks and 6 days: 99 percentile/ Femur Length: 6.51 cm: 33 weeks and 4 days: 4th percentile/ ESTIMATED WEIGHT: 3097 g plus/-465 g ESTIMATED WEIGHT PERCENTILE (24+ weeks): 80 ESTIMATED GESTATIONAL AGE: Baseline: 35 weeks and 6 days By Ultrasound: 36 weeks and 5 days ESTIMATED DATE OF DELIVERY: Baseline: February 28, 2025 By Ultrasound: February 22, 2025 BIOPHYSICAL ASSESSMENT: Amniotic Fluid Volume: 7.4 cm Amniotic Fluid Index: 14.6 cm (8-24 cm normal range) Cardiac Motion: 166 beats per minute (average) Trunk and Limb Motion: Present. MATERNAL ANATOMY: Adnexa: Neither maternal ovary is successfully identified. US/OB Limited With Biometrics IMPRESSION: Single live intrauterine gestation with a mean gestational age of 36 weeks and 5 days. Reading Location: [id number]
[2025-01-30 16:55] LABS: Glucose Challenge Gest 1H 50g 167 mg/dL (70-140)
== END | disposition home or self-care (01) ==
LOC: OPUS 08:48
PROVIDERS: PCP Family Medicine; Referring Provider Advanced Practice Midwife; Visit Provider Advanced Practice Midwife
DX: O09.523 Supervision of elderly multigravida, third trimester (principal); Z3A.00 Weeks of gestation of pregnancy not specified
CPT/HCPCS: 36415; 76816; 82950

== ENCOUNTER → 2025-02-02 | Outpatient (CLI) | payer OTHER, SELFPAY ==
[2025-02-02 10:35] LABS: Glucose GTT- Fasting 72 mg/dL (70-99)
[2025-02-02 12:03] LABS: Glucose GTT-30 minutes 109 mg/dL (110-170)
[2025-02-02 12:55] LABS: Glucose GTT- 1 Hour 138 mg/dL (120-170)
[2025-02-02 14:17] LABS: Glucose GTT- 2 Hour 150 mg/dL (70-120)
[2025-02-02 15:15] LABS: Glucose GTT- 3 Hour 129 mg/dL (70-110)
== END | disposition home or self-care (01) ==
LOC: LAB 09:54
PROVIDERS: PCP Family Medicine; Referring Provider Advanced Practice Midwife; Visit Provider Advanced Practice Midwife
DX: O24.419 Gestational diabetes mellitus in pregnancy, unspecified control (principal); Z3A.00 Weeks of gestation of pregnancy not specified
CPT/HCPCS: 36415; 82951; 82952

== ENCOUNTER → 2025-02-07 | Outpatient (CLI) | payer OTHER, SELFPAY ==
[2025-02-07 14:00] LABS: ROM Internal Control Test YES-OK TO RESULT pt. (Internal QC); ROM Patient Test Negative (Negative); Record Kit Lot#, ROM+ K3358
== END | disposition home or self-care (01) ==
LOC: LABSPEC 13:35
PROVIDERS: PCP Family Medicine; Referring Provider Advanced Practice Midwife; Visit Provider Advanced Practice Midwife
DX: O09.93 Supervision of high risk pregnancy, unspecified, third trimester (principal); Z3A.37 37 weeks gestation of pregnancy
CPT/HCPCS: 84112; 87081

== ENCOUNTER 2025-02-10 14:40 | Outpatient (CLI) | payer OTHER, SELFPAY ==
[2025-02-10 14:47] VITALS: BMI 27.8
[2025-02-10 14:58] VITALS: BP 119/74; PULSE 94; RESP 17; TEMP 37.7
[2025-02-10 15:00] VITALS: O2SAT 97
[2025-02-10 16:27] LABS: ROM Internal Control Test YES-OK TO RESULT pt. (Internal QC); ROM Patient Test Negative (Negative)
[2025-02-10 16:28] LABS: Record Kit Lot#, ROM+ K3358
--- NOTE | 2025-02-10 16:34 | OB.TRI.HP_ITS ---
HPI - General HPI Narrative MAYUR FERNANDES, is a 34 F who presents at 37.3 with small gush of vaginal fluid. no ctx, vb, good fm. Maternal Data Information DIANNA Calculator Estimated Delivery Date Method Current WG Current Estimate 02/28/25 LMP (Certain) 37w 3d PFSH PFSH Home Medications ?Medication ?Instructions ?Recorded ?Last Taken ?Type docosahexaenoic acid 200 mg mg PO 07/08/24 Unknown His tory capsule ( DHA) Allergy/AdvReac Type Severity Reaction Status Date / Time No Known Allergies Allergy Verified 02/10/25 15:03 Family History Grandfather Cancer Lung cancer Grandmother Cancer Hypertension Breast cancer Father Hypertension Aunt Breast cancer Surgical History Gallbladder & bile duct stone with obstruction Social History adopted: No household members: spouse and children number of children: 2 current occupational status: employed 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 occupational exposures/hazards: No pets and animals: Yes ( taking care of litterbox) pets and animals: cat(s) and dog(s) history of recent travel: No sexually active: Yes Smoking Status: Never smoker alcohol intake: current alcohol intake frequency: holidays/special occasions only details: Not while substance use type: does not use diet: gluten free well-balanced diet: daily or most days caffeine: Yes Type: coffee eating out: 1-3 times/week during the past year weight has: decreased > 10 lbs what type of physical activity do you participate in: other details: REBECCA, Cardio, Body Weight frequency: 5-6 times per week duration: 15-30 minutes/day tres/mormon: Sabianist seatbelt use: always do you feel safe at home: Yes additional social history: : 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 Date Name GA/Weeks Outcome Route Bth Weight Infant Gen Labor Lgth Anesthesia Del Locatn Provider FOB 09/16/14 Johnny 40 live - full term 8 lbs. 6.5 oz. M fredis 9.5 hours [facility] Rickie 11/02/18 [place] 37 live - full term 6lbs Male epidural [facility] Dr. Kyung Damian Delivery Date: 09/16/14 Last Updated by: Slime Shepherd RN Mild PP hemorrhage Visit Details Expected Delivery Route/Plan Labor Preferences- CB/BF classes: no labor support person: Rickie labor intervention preferences: [] pain management options preferred: considering unmedicated but open cut cord/dad catch: [] : yes PP control planned: [] discussed possible routes of delivery and associated risks: special requests: [] Plans Covid status: [] Flu vaccine: [] Tdap vaccine: declines Rhogam: [] LARC form signed: yes Problem list reviewed and updated with the most current plan of care details and appropriate orders placed. Relevant counseling for the gestational age provided. Continue routine care and follow up unless otherwise noted in visit notes/problem list details OB Flowsheet Initial Weight: 125 lb Date -?-?-?-?-?-?-?-?-?-?-?-?- EGA Weight BP Urine Prot -?-?-?-?-?-?-?-?-?-?-?-?- Glucose FHR FuHt Pres Dilation -?-?-?-?-?-?-?-?-?-?-?-?- Effaced St Visit Note 07/22/24 -?-?-?-?-?-?-?-?-?-?-?-?- 8w 3d 125 lb (+0 oz) 134/90 -?-?-?-?-?-?-?-?-?-?-?-?- 170 -?-?-?-?-?-?-?-?-?-?-?-?- SM- CRL 1.9 cm c ons with lmp SM- CRL 1.9 cm cons with lmp , forgot to repeat BP no history of elevated bp will repeat at next appointment 08/23/24 -?-?-?-?-?-?-?-?-?-?-?-?- 13w 0d 135 lb (+10 lb) 129/75 Negative -?-?-?-?-?-?-?-?-?-?-?-?- Negative 160 -?-?-?-?-?-?-?-?-?-?-?-?- KW- no vb/crampi ng. Anatomy US ordered. 09/22/24 -?-?-?-?-?-?-?-?-?-?-?-?- 17w 2d 141 lb 4 oz (+16 lb 4 oz) 114/71 Negative -?-?-?-?-?-?-?-?-?-?-?-?- Negative 157 -?-?-?-?-?-?-?-?-?-?-?-?- JV- no lof, vagi nal bleeding, or cramping. nausea is improved. NIPT low risk girl! 10/20/24 -?-?-?-?-?-?-?-?-?-?-?-?- 21w 2d 149 lb 8 oz (+24 lb 8 oz) 118/74 Negative -?-?-?-?-?-?-?-?-?-?-?-?- Negative 145 -?-?-?-?-?-?-?-?-?-?-?-?- SM- no vb lof go od fm no regular ctx 11/17/24 -?-?-?-?-?-?-?-?-?-?-?-?- 25w 2d 151 lb 6 oz (+26 lb 6 oz) 108/71 Negative -?-?-?-?-?-?-?-?-?-?-?-?- Negative 165 25 -?-?-?-?-?-?-?-?-?-?-?-?- JV- no lof, vagi nal bleeding, or dec fm. no complaints today. 12/14/24 -?-?-?-?-?-?-?-?-?-?-?-?- 29w 1d 162 lb (+37 lb) 104/68 Negative -?-?-?-?-?-?-?-?-?-?-?-?- Negative 152 29 -?-?-?-?-?-?-?-?-?-?-?-?- MH-No VB, LOF. G ood FM. 28 wk labs. Larc. 12/30/24 -?-?-?-?-?-?-?-?-?-?-?-?- 31w 3d 166 lb 2 oz (+41 lb 2 oz) 117/72 Negative -?-?-?-?-?-?-?-?-?-?-?-?- Negative 145 31 -?-?-?-?-?-?-?-?-?-?-?-?- LC- no vb/ctx/lo f. good fm. declines tdap 01/13/25 -?-?-?-?-?-?-?-?-?-?-?-?- 33w 3d 167 lb 4 oz (+42 lb 4 oz) 110/72 Negative -?-?-?-?-?-?-?-?-?-?-?-?- Negative 150 33 -?-?-?-?-?-?-?-?-?-?-?-?- KW- no vb/lof/ct x. good fm. no concerns 01/27/25 -?-?-?-?-?-?-?-?-?-?-?-?- 35w 3d 174 lb 2 oz (+49 lb 2 oz) 116/73 Negative -?-?-?-?-?-?-?-?-?-?-?-?- Negative 151 36 Cephalic -?-?-?-?-?-?-?-?-?-?-?-?- JV- growth scan scheduled for thursday. no complaints today. ++ fm. 02/07/25 -?-?-?-?-?-?-?-?-?-?-?-?- 37w 0d 166 lb 2 oz (+41 lb 2 oz) 124/79 Negative -?-?-?-?-?-?-?-?-?-?-?-?- Negative 150 36 Cephalic 2 -?-?-?-?-?-?-?-?-?-?-?-?- 80 -2 KW- no vb/ lof/ reg ctx. good fm growth scan reviewed and did 3 hour gct which was normal. some increased discharge, ROM sent and GBS today NST FHR Rate Baby A Baseline: 150 Variability:: Moderate Accelerations:: 15 x 15 Decelerations:: None NST Reactive:: Yes FHR Category:: Category I Assessment & Plan (1) No leakage of amniotic fluid into vagina: COMMENT: ROM negative at 37.3, not feeling occ ctx. PLAN: Patient presents for triage evaluation secondary to questionable leaking of fluid. small gush felt on underwear, no further leaking. rom plus is negative. FHT: Moderate variability reactive no decelerations category I tracing Warren: Contractions Assessment and plan: Reactive NST, reassuring maternal and status patient discharged to home to follow-up in office with appt. See problem list details for additional plan information. Charges/Coding Procedures Urinary/Genital [id number]: [id number] non-stress test Interp
== END 2025-02-10 16:47 | disposition home or self-care (01) ==
LOC: WPOUT 14:45 → WP 14:46
PROVIDERS: PCP Family Medicine; Referring Provider Registered Nurse; Visit Provider Registered Nurse
DX: Z03.71 Encounter for suspected problem with amniotic cavity and membrane ruled out (principal); Z3A.37 37 weeks gestation of pregnancy
CPT/HCPCS: 59025; 59050; 84112; 99221; G0378

== ENCOUNTER 2025-02-10 21:58 | Inpatient (IN) | payer OTHER, SELFPAY ==
[2025-02-10 21:19] VITALS: BMI 26.6
[2025-02-10 21:28] VITALS: BP 122/80; PULSE 91; RESP 16; TEMP 36.8; O2SAT 99
[2025-02-10 21:47] LABS: ROM Internal Control Test YES-OK TO RESULT pt. (Internal QC)
[2025-02-10 21:50] LABS: ROM Patient Test POSITIVE (Negative); Record Kit Lot#, ROM+ K3358
--- NOTE | 2025-02-10 22:15 | HP.PCM.OB_ITS ---
HPI - General General Date of Admission: 02/10/25 HPI Narrative MAYUR FERNANDES, is a 34 F who presents at 37.3 with gush of fluid at 2015 that saturated her pad. mild ctx. good fm. gbs neg. Maternal Data Information DIANNA Calculator Estimated Delivery Date Method Current WG Current Estimate 02/28/25 LMP (Certain) 37w 3d PFSH PFSH Home Medications ?Medication ?Instructions ?Recorded ?Last Taken ?Type docosahexaenoic acid 200 mg mg PO 07/08/24 02/05/25 Hi story capsule ( DHA) Allergy/AdvReac Type Severity Reaction Status Date / Time No Known Allergies Allergy Verified 02/10/25 21:44 Family History Grandfather Cancer Lung cancer Grandmother Cancer Hypertension Breast cancer Father Hypertension Aunt Breast cancer Surgical History Gallbladder & bile duct stone with obstruction Social History adopted: No household members: spouse and children number of children: 2 current occupational status: employed 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 occupational exposures/hazards: No pets and animals: Yes ( taking care of litterbox) pets and animals: cat(s) and dog(s) history of recent travel: No sexually active: Yes Smoking Status: Never smoker alcohol intake: current alcohol intake frequency: holidays/special occasions only details: Not while substance use type: does not use diet: gluten free well-balanced diet: daily or most days caffeine: Yes Type: coffee eating out: 1-3 times/week during the past year weight has: decreased > 10 lbs what type of physical activity do you participate in: other details: REBECCA, Cardio, Body Weight frequency: 5-6 times per week duration: 15-30 minutes/day tres/jain: Denominational seatbelt use: always do you feel safe at home: Yes additional social history: : 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 Date Name GA/Weeks Outcome Route Bth Weight Gen Labor Lgth Anesthesia Del Locatn Provider FOB 09/16/14 Johnny 40 live - full term 8 lbs. 6.5 oz. M fredis 9.[facility] Rickie 11/02/18 [place] 37 live - full term 6lbs Male epidural [facility] Dr. Kyung Damian Delivery Date: 09/16/14 Last Updated by: Slime Shepherd RN Mild PP hemorrhage Visit Details Expected Delivery Route/Plan Labor Preferences- CB/BF classes: no labor support person: Rickie labor intervention preferences: [] pain management options preferred: considering unmedicated but open cut cord/dad catch: [] : yes PP control planned: [] discussed possible routes of delivery and associated risks: special requests: [] Plans Covid status: [] Flu vaccine: [] Tdap vaccine: declines Rhogam: [] LARC form signed: yes Problem list reviewed and updated with the most current plan of care details and appropriate orders placed. Relevant counseling for the gestational age provided. Continue routine care and follow up unless otherwise noted in visit notes/problem list details OB Flowsheet Initial Weight: 125 lb Date -?-?-?-?-?-?-?-?-?-?-?-?- EGA Weight BP Urine Prot -?-?-?-?-?-?-?-?-?-?-?-?- Glucose FHR FuHt Pres Dilation -?-?-?-?-?-?-?-?-?-?-?-?- Effaced St Visit Note 07/22/24 -?-?-?-?-?-?-?-?-?-?-?-?- 8w 3d 125 lb (+0 oz) 134/90 -?-?-?-?-?-?-?-?-?-?-?-?- 170 -?-?-?-?-?-?-?-?-?-?-?-?- SM- CRL 1.9 cm c ons with lmp SM- CRL 1.9 cm cons with lmp , forgot to repeat BP no history of elevated bp will repeat at next appointment 08/23/24 -?-?-?-?-?-?-?-?-?-?-?-?- 13w 0d 135 lb (+10 lb) 129/75 Negative -?-?-?-?-?-?-?-?-?-?-?-?- Negative 160 -?-?-?-?-?-?-?-?-?-?-?-?- KW- no vb/crampi ng. Anatomy US ordered. 09/22/24 -?-?-?-?-?-?-?-?-?-?-?-?- 17w 2d 141 lb 4 oz (+16 lb 4 oz) 114/71 Negative -?-?-?-?-?-?-?-?-?-?-?-?- Negative 157 -?-?-?-?-?-?-?-?-?-?-?-?- JV- no lof, vagi nal bleeding, or cramping. nausea is improved. NIPT low risk girl! 10/20/24 -?-?-?-?-?-?-?-?-?-?-?-?- 21w 2d 149 lb 8 oz (+24 lb 8 oz) 118/74 Negative -?-?-?-?-?-?-?-?-?-?-?-?- Negative 145 -?-?-?-?-?-?-?-?-?-?-?-?- SM- no vb lof go od fm no regular ctx 11/17/24 -?-?-?-?-?-?-?-?-?-?-?-?- 25w 2d 151 lb 6 oz (+26 lb 6 oz) 108/71 Negative -?-?-?-?-?-?-?-?-?-?-?-?- Negative 165 25 -?-?-?-?-?-?-?-?-?-?-?-?- JV- no lof, vagi nal bleeding, or dec fm. no complaints today. 12/14/24 -?-?-?-?-?-?-?-?-?-?-?-?- 29w 1d 162 lb (+37 lb) 104/68 Negative -?-?-?-?-?-?-?-?-?-?-?-?- Negative 152 29 -?-?-?-?-?-?-?-?-?-?-?-?- MH-No VB, LOF. G ood FM. 28 wk labs. Larc. 12/30/24 -?-?-?-?-?-?-?-?-?-?-?-?- 31w 3d 166 lb 2 oz (+41 lb 2 oz) 117/72 Negative -?-?-?-?-?-?-?-?-?-?-?-?- Negative 145 31 -?-?-?-?-?-?-?-?-?-?-?-?- LC- no vb/ctx/lo f. good fm. declines tdap 01/13/25 -?-?-?-?-?-?-?-?-?-?-?-?- 33w 3d 167 lb 4 oz (+42 lb 4 oz) 110/72 Negative -?-?-?-?-?-?-?-?-?-?-?-?- Negative 150 33 -?-?-?-?-?-?-?-?-?-?-?-?- KW- no vb/lof/ct x. good fm. no concerns 01/27/25 -?-?-?-?-?-?-?-?-?-?-?-?- 35w 3d 174 lb 2 oz (+49 lb 2 oz) 116/73 Negative -?-?-?-?-?-?-?-?-?-?-?-?- Negative 151 36 Cephalic -?-?-?-?-?-?-?-?-?-?-?-?- JV- growth scan scheduled for thursday. no complaints today. ++ fm. 02/07/25 -?-?-?-?-?-?-?-?-?-?-?-?- 37w 0d 166 lb 2 oz (+41 lb 2 oz) 124/79 Negative -?-?-?-?-?-?-?-?-?-?-?-?- Negative 150 36 Cephalic 2 -?-?-?-?-?-?-?-?-?-?-?-?- 80 -2 KW- no vb/ lof/ reg ctx. good fm growth scan reviewed and did 3 hour gct which was normal. some increased discharge, ROM sent and GBS today NST FHR Rate Baby A Baseline: 150 Variability:: Moderate Accelerations:: 15 x 15 Decelerations:: None NST Reactive:: Yes FHR Category:: Category I Uterine Activity:: q5 minutes ROS Cardiovascular Cardiovascular: Denies abdominal pain, chest pain, diaphoresis or dyspnea Genitourinary Genitourinary: Reports change in urinary stream Musculoskeletal Musculoskeletal: Reports none Integumentary Integumentary: Reports none Neurologic Neurologic: Reports none Psychiatric Psychiatric: Reports none Endocrine Endocrinology: Reports none Hematologic/Lymphatic Hematologic/Lymphatic: Reports none Allergic/Immunologic Allergic/Immunologic: Reports none Vital Signs Vital Signs Vital Signs: 02/10/25 21:28 02/10/25 21:28 02/10/25 21:28 Temperature Temperature Source Pulse Rate 91 Respiratory Rate Blood Pressure 122/80 H BP Systolic 122 BP Diastolic 80 Pulse Ox 99 02/10/25 21:28 02/10/25 21:28 02/10/25 21:28 Temperature 98.2 F Temperature Source Temporal Pulse Rate Respiratory Rate 16 Blood Pressure BP Systolic BP Diastolic Pulse Ox Weight Weight: 165 lb 3.2 oz Body Mass Index (BMI) 26.6 Physical Exam Const alert, oriented x3 and no apparent distress General Appearance: cooperative, comfortable and well kempt Orientation / Consciousness: awake and oriented to person Exam Limitations: no limitations HEENT normocephalic Neck full ROM Chest inspection of chest normal Resp normal respiratory effort, normal air movement and no retractions Effort and Inspection: able to speak in complete sentences and symmetric chest movement Cardio regular rate Peripheral Pulses: pulses 2+ throughout GI normal to inspection, nondistended, normoactive bowel sounds Inspection: gravid no CVA tenderness and appearance of the vagina normal External Female Exam: normal appearance of the urethra; Negative for external lesion OB / External & Speculum: external exam normal Manual OB Exam: estimated gestational size appropriate and presentation cephalic Uterus Palpation: Negative for uterus tender Extremity normal to inspection Skin no rashes or lesions noted Neuro deep tendon reflexes 2+ bilaterally and gait normal Motor Exam: strength 5/5 throughout and clonus absent Psych Activity / Motor Behavior: appropriate eye contact Speech: normal speech Labs Labs Labs: Blood Type A POSITIVE Antibody Screen NEGATIVE Hct 37.7 % (37-47) Hgb 12.4 g/dL (12.0-15.0) Pap Smear Negative Obstetrics Ultrasound Syphilis Total Ab Nonreactive (Nonreactive) Rubella IgG Antibody Reactive (Nonreactive) Hep Bs Antigen Non-Reactive (Nonreactive) Hepatitis C Antibody Non-Reactive (Nonreactive) Chlamydia DNA ([facility]) Negative (Negative) N.gonorrhoeae DNA ([facility]) Negative (Negative) HIV 1&2 Antibody Nonreactive (Nonreactive) Glucose 1 Hr 50 gm 167 mg/dL (70-140) H Rhogam given: No Miscellaneous Test Assessment & Plan (1) SROM (spontaneous rupture of membranes): COMMENT: 02/10 clear fluid. gbs neg PLAN: Patient presents SROM, plan expectant management for , pitocin PRN if needed. Pain management: plans epidural. GBS negative. Management of any complications: suspected LGA, repeat 3 hour glucose negative for gestational diabetes. I have reviewed the [facility] and made any clinically relevant updates. -plan to repeat cervical exam by 6 hours, add pitocin if unchanged. r/b/a reviewed and patient desires low intervention if possible. darryl Artis updated on admission, exam and poc. agrees with primary midwifery management.
[2025-02-10 22:19] LABS: Absolute Lymphocyte Count 1.14 X10^3/uL (0.83-4.51); Absolute Neutrophil Count 6.1 X10^3/uL (2.0-7.7); Basophil# 0.03 X10^3/uL; Basophil% 0.4 % (0-1); Eosinophil# 0.05 X10^3/uL; Eosinophils% 0.6 % (0-5); Hemoglobin 13.1 g/dL (12.0-15.0); Lymphocyte # 1.14 X10^3/ul (0.83-4.51); Lymphocyte % 14.3 % (19-41); Mean Corp Hgb Conc 33.6 g/dL (32-36); Mean Corpuscular Hgb 30.4 pg (27.0-32.0); Mean Corpuscular Volume 90.5 fL (81-99); Mean Platelet Vol. 10.9 fl (6.2-12.0); Monocyte# 0.65 X10^3/uL; Monocyte% 8.2 % (0-10); NRBC Flagged by Analyzer 0 % (0-5); Neutrophil # 6.06 X10^3/uL (2.7-7.7); Neutrophil % 76.1 % (47-70); Platelet Count 193 K/mm3 (150-450); RBC Distribution Width CV 12.9 % (11.6-14.6); RBC Distribution Width SD 42.1 fl (35.1-43.9); Red Blood Count 4.31 M/mm3 (4.2-5.4)
[2025-02-10 22:54] LABS: Syphilis Antibodies Nonreactive (Nonreactive)
[2025-02-10 23:49] VITALS: BP 128/73; PULSE 100; RESP 18; TEMP 36.6
[2025-02-11] VITALS (96 sets, daily range): BP systolic 89–134; BP diastolic 52–84; PULSE 75–149; RESP 14–18; TEMP 36.3–37.6; O2SAT 80–100
[2025-02-11] MEDS: Lactated Ringers 1,000 ML 50 ML IV (03:48)
[2025-02-11] MEDS: Oxytocin 15 Units/NS 250ml 15 UNITS/250 ML IV.SOLN 2 UNITS IV (03:50)
[2025-02-11] MEDS: Lactated Ringers 1,000 ML 999 ML IV (04:55)
[2025-02-11] MEDS: fentaNYL-bupivacaine (epidural) 100 ML BAG EPIDURAL (06:09)
[2025-02-11] MEDS: LACTATED RINGERS 500 ML 999 ML IV (07:25)
--- NOTE | 2025-02-11 09:33 | OB.VAGDELI_ITS ---
Assessment & Plan (1) (spontaneous vaginal delivery): COMMENT: LC SROM girl-Sophy Maternal Data Information DIANNA Calculator Estimated Delivery Date Method Current WG Current Estimate 02/28/25 LMP (Certain) 37w 4d Final DIANNA: 02/28/25 Gestational age: 37.4 Vaginal Delivery Maternal Presentation Maternal Presentation: Spontaneous Rupture of Membranes Maternal Presentation: presenting with SROM at 2015, pitocin augmentation around 330 for unchanged cervical exam. epiduralized and attempted to gain comfort, epidural replaced and once comfortable found to be fully dilated. Vaginal Delivery Information Procedure Performed: Spontaneous Vaginal Delivery Type of anesthesia: Epidural Estimated Blood Loss: 150 Time of Delivery: 09:17 Findings Description of procedure: Patient began pushing and delivered the head in the SARAH presentation. The head was delivered atraumatically. The anterior and posterior shoulders delivered without complication followed by the rest of the infant and the infant was placed on the maternal abdomen. Delayed cord clamping was employed for ap proximately 4 minutes. Cord was clamped and cut and gentle traction was applied to the cord and the placenta delivered spontaneously immediately following it was noted to be intact with three-vessel cord. The perineum and vagina were inspected and noted to have no laceration. EBL was 150cc. Patient and infant tolerated delivery well. 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
--- NOTE | 2025-02-11 09:37 | DCINST_ITS ---
Discharge Instructions Diet Discharge Diet: No restrictions DC O2, CPAP, BIPAP needs Home O2 Discharge instructions: No Dressing / Incision Discharge Activity: May Not Drive and May Shower May resume sexual activity in: 6 weeks Weight Bearing Status: Full weight bearing Dressing / Incision Call your doctor if your incision/area has: Sudden Increased Bleeding, Increased Pain/ Swelling and Foul Smelling Discharge Call your doctor if you observe: Fever of 101 or Higher, Numbness or Tingling, Change in Color, Inability to urinate, Inability to have a bowel movement, Using more than 1 pad per hour, Shortness of breath, Dizziness, Fainting spells, Chest pain, Calf discomfort and Uncontrolled pain Follow Up Care Please Follow Up With: India Phoenix CNM When: 6 weeks , please call office to make an appointment. Congratulations on the of your baby! Test Results: Test results from this visit will be discussed in further detail at your follow- up appointment, if applicable. Discharge Plan Admission Admit Date/Time: 02/10/25 21:58 Attending Provider: India Phoenix Primary Care Provider: Juan Adler Discharge Orders/Prescriptions Prescriptions: No Action DHA 200 mg capsule PO Referrals / Follow Up: Juan Adler MD [Primary Care Provider] -
[2025-02-11] MEDS: Oxytocin 15 Units/NS 250ml 15 UNITS/250 ML IV.SOLN 83 UNITS IV (10:25)
[2025-02-11] MEDS: Acetaminophen 500 MG Tablet 1000 MG PO (19:42)
[2025-02-12] MEDS: Naproxen 500 MG Tablet PO (02:39)
[2025-02-12 04:48] VITALS: BP 126/71; PULSE 73; RESP 16; O2SAT 97
[2025-02-12 04:52] VITALS: BP 126/71; PULSE 67
[2025-02-12 09:32] VITALS: BP 113/69; PULSE 88; RESP 16; TEMP 36.6; O2SAT 98
[2025-02-12 09:33] VITALS: BP 113/69; PULSE 88
--- NOTE | 2025-02-12 09:45 | PCM.PN.CNM ---
Subjective Subjective Patient doing well without complaints. Tolerating PO. Ambulating and voiding without difficulty. Feeding well. Denies chest pain, shortness of breath, calf pain/swelling, fevers, chills, lightheadedness. Objective Data Objective Data Vital Signs: Vital Signs Temp Pulse Resp BP Pulse Ox O2 Del Method 97.8 F 88 16 113/69 98 Room Air 02/12/25 09:32 02/12/25 09:33 02/12/25 09:32 02/12/25 09:33 02/12/25 09:32 02/12/25 09:32 Oxygen Delivery Method Room Air Weight: 165 lb 3.2 oz Body Mass Index (BMI) 26.6 Intake & Output: Intake and Output for Last 24 Hours 02/10/25 02/11/25 02/12/25 23:59 23:59 23:59 Intake Total 2584.66 / 2584.66 Output Total 1650 / 1650 Balance 934.66 / 934.66 Lab / Micro Data 02/10/25 22:00 Physical Exam Const alert and oriented x3 Chest inspection of chest normal Resp normal respiratory effort and normal air movement Effort and Inspection: able to speak in complete sentences GI normal to inspection, nondistended, normoactive bowel sounds Uterus Palpation: uterus fundus firm (below u) Extremity normal to inspection, full ROM and no calf tenderness Psych mental status grossly normal Assessment & Plan (1) (spontaneous vaginal delivery): COMMENT: BRIAN NETTLES girl-Sophy PLAN: s/p PPD # 1 1. routine post delivery care 2. breast feeding- support given 3. rh positive 4. rubella immune 5. plans early d/c home today
== END 2025-02-12 11:35 | disposition home or self-care (01) | DRG 807 ==
LOC: WPOUT 22:00 → WP 22:00
PROVIDERS: Admitting Provider Registered Nurse; PCP Family Medicine; Referring Provider Registered Nurse; Visit Provider Registered Nurse
DX: O42.02 Full-term premature rupture of membranes, onset of labor within 24 hours of rupture (principal); Z37.0 Single live birth; O36.63X0 Maternal care for excessive fetal growth, third trimester, not applicable or unspecified; Z3A.37 37 weeks gestation of pregnancy
CPT/HCPCS: 59025; 59050; 84112; 85025; 86780; 86850; 86900; 86901; 99221; G0378

== ENCOUNTER → 2025-03-20 | Outpatient (CLI) | payer OTHER, SELFPAY | END | disposition home or self-care (01) | LOC: LABSPEC 16:40 | PROVIDERS: PCP Family Medicine; Referring Provider Nurse Practitioner Women's Health; Visit Provider Nurse Practitioner Women's Health | DX: Z12.4 Encounter for screening for malignant neoplasm of cervix (principal) | CPT/HCPCS: 87624; 88175; G0145 ==